=== PATIENT | male | born 1960 | race Caucasian/White ===

== ENCOUNTER 2016-04-22 19:05 | Emergency (ER) | payer BC, OTHER ==
[~2016-04-22] VITALS: Ht 167.6 cm; Wt 63.0 kg
[~2016-04-22 19:05] MED LIST: ALLO100T PO; PRED20 PO
[2016-04-22 19:09] VITALS: BP 136/80; PULSE 66; RESP 16; TEMP 99; O2SAT 100
[2016-04-22] MEDS ORDERED: metroNIDAZOLE 500 MG TAB PO ONE (19:30)
[2016-04-22] MEDS ORDERED: SULFAMETHOXAZOLE-TRIMETHOPRIM DS 800-160 MG TAB PO ONE (19:30)
[2016-04-22] MEDS ORDERED: TETANUS/DIPHTHERIA TOXOID ADULT 0.5 ML VIAL IM ONE (19:30)
[2016-04-22] MEDS ORDERED: BACT800T5 PO (19:31)
[2016-04-22] MEDS ORDERED: METR-1 PO (19:31)
--- NOTE | 2016-04-22 19:46 | PD ---
HPI Chief Complaint: Bite or Sting Time Seen by Provider: 19:31 Travel History International Travel<30 days: No Contact w/Intl Traveler<30days: No Traveled to known affect area: No History of Present Illness HPI 55-year-old right-handed male presents to the emergency room for evaluation of a cat bite to his right thumb. His pet cat bit him last night. Cat is up-to- date on rabies. Patient is concerned for tendon injury because he looked it up online. Pain is localized to the right volar thumb with some radiation into the right wrist. Worse with range of motion. Denies drainage, fever, chills, nausea, and vomiting. He does not remember his last tetanus vaccination. PFSH Past Medical History Asthma: Yes Diminished Hearing: No Gout: Yes Social History Alcohol Use: Yes (OCCASIONAL) Tobacco Use: No Substance Use: No Allergies-Medications (Allergen,Severity, Reaction): Coded Allergies: Penicillin (Verified Allergy, Unknown, unknown, 04/22/16) Reported Meds & Prescriptions Reported Meds & Active Scripts Active Flagyl (Metronidazole) 500 Mg Tab 500 Mg PO Q8HR 10 Days Bactrim DS (Sulfamethoxazole-Trimethoprim) 800-160 Mg Tab 1 Tab PO BID Review of Systems Except as stated in HPI: all other systems reviewed are Neg Physical Exam Narrative GENERAL: Well-nourished, well-developed male in no acute distress. Afebrile. Ambulatory. SKIN: Warm and dry. There is a small puncture wound over the volar aspect of the DIP joint and distal phalanx of the right thumb. There is surrounding erythema that starts at the base of the thumb. No drainage. HEAD: Normocephalic. EYES: No scleral icterus. No injection or drainage. NECK: Supple, trachea midline. No JVD or lymphadenopathy. EXTREMITY: Right thumb tender to palpation especially over the DIP; no tenderness along the tendon sheath. Mild tenderness to palpation of the right volar, radial wrist. Limited range of motion secondary to edema. Moderate edema of the right thumb but no fusiform swelling. Normal opposition of thumb. Less than 2 second capillary refill distally. Full range motion of the right hand. Finger is not held in flexion. There is no pain with passive extension. Data Data Last Documented VS Vital Signs Date Time Temp Pulse Resp B/P Pulse Ox O2 Delivery O2 Flow Rate FiO2 04/22/16 19:09 99.0 66 16 136/80 100 Orders Sulfamet-Trimeth Ds 800-160 Mg (Bactrim (04/22/16 19:30) Metronidazole (Flagyl) (04/22/16 19:30) Tetanus/Diphtheria Tox Adult (Tetanus/Di (04/22/16 19:30) MDM Medical Decision Making Medical Screen Exam Complete: Yes Emergency Medical Condition: Yes Medical Record Reviewed: Yes Differential Diagnosis Animal bite cellulitis versus flexor tenosynovitis unlikely Narrative Course 55-year-old male presents to the emergency room for evaluation of the cat bite to his right thumb that occurred last night. It was his personal pet and cat is up-to-date on rabies. Patient is afebrile and well-appearing in the emergency room. Vital signs stable. Resting comfortably in bed. Physical exam reveals 2 puncture wounds to the volar aspect of the right thumb that are tender to palpation with surrounding erythema. Full range motion of the right hand. Strength 5/5 in the thumb. Less than 2 second capillary refill distally. No drainage. Patient has 0/4 [place] signs. He was updated on tetanus. He'll be started on trial of outpatient antibiotics and given his first dose in the emergency room. Told to follow-up in 2 days for recheck. He understands and agrees to plan. Diagnosis Primary Impression: Cat bite of right thumb with infection Qualified Code: S61.051A - Cat bite of right thumb with infection, initial encounter Referrals: Primary Care Physician Patient Instructions: Animal Bite (ED), General Instructions Additional Instructions: Rest and drink plenty of fluids. Take Bactrim and Flagyl as directed, until gone. Do not drink alcohol while taking Flagyl. Take ibuprofen with food as directed, as needed for pain. Elevate and apply ice to the affected area for 20 minutes at a time, as needed for pain and swelling. Follow-up with a primary care physician in 2 days for recheck. Return to the emergency room for worsening symptoms. Med/Other Pt SpecificInfo: Prescription(s) given Scripts Metronidazole (Flagyl)500 Mg [id number] Mg PO Q8HR 10 Days Ref 0 Prov:Shantel Wang MD 04/22/16 Sulfamethoxazole-Trimethoprim (Bactrim DS)800-160 Mg Tab1 Tab PO BID #20 TAB Ref 0 Prov:Shantel Wang MD 04/22/16 Disposition: 01 DISCHARGE HOME Condition: Stable Meredith Moore Apr 22, 2016 19:45
== END 2016-04-22 19:54 | disposition home or self-care (01) ==
LOC: PHEFT 19:05
DX: S61.051A Open bite of right thumb without damage to nail, initial encounter (principal); B99.9 Unspecified infectious disease; M25.531 Pain in right wrist; J45.909 Unspecified asthma, uncomplicated; Z23 Encounter for immunization; W55.01XA Bitten by cat, initial encounter
CPT/HCPCS: 90471; 90714